=== PATIENT | male | born 1950 | race Caucasian/White ===

== ENCOUNTER 2017-10-19 01:10 | Emergency (ER) | payer OTHER ==
[~2017-10-19] VITALS: Ht 180.3 cm; Wt 158.8 kg
[2017-10-19] MEDS ORDERED: LISINOPRIL20 MG PO (01:25)
[2017-10-19] MEDS ORDERED: CARTIA XT120 M1 (01:25)
[2017-10-19] MEDS ORDERED: CARTIA XT300 M1 (01:25)
[2017-10-19] MEDS ORDERED: MAXZIDE-25 MG1 EACH (01:25)
[2017-10-19] MEDS ORDERED: TESTOSTERONE (01:26)
[2017-10-19] MEDS ORDERED: ARIMIDEX (01:26)
[2017-10-19] MEDS ORDERED: ALLOPURINOL 10100 M1 PO (01:26)
[2017-10-19] MEDS ORDERED: DHEA (01:27)
[2017-10-19] MEDS ORDERED: VITAMIN D (01:27)
[2017-10-19] MEDS ORDERED: PREGABALIN (01:27)
[2017-10-19 02:13] LABS: URINE BILIRUBIN NEGATIVE (Negative); URINE BLOOD 2+ (Negative); URINE CLARITY CLEAR; URINE COLOR YELLOW; URINE GLUCOSE-RANDOM NEGATIVE (Negative); URINE KETONES NEGATIVE (Negative); URINE LEUKOCYTES-REFLEX NEGATIVE (Negative); URINE NITRITE-REFLEX NEGATIVE (Negative); URINE PROTEIN 2+ (Negative); URINE UROBILINOGEN 0.2 E.U./dl (0.2-1.0)
[2017-10-19] MEDS ORDERED: FLOMAX0.4 MG PO (02:32)
[2017-10-19 02:52] VITALS: BP 133/66
[2017-10-19 02:54] LABS: CASTS None Seen /LPF (None Seen); SQUAMOUS 0-3 Few /LPF (0-3)
[2017-10-19 02:55] LABS: CRYSTALS None Seen /LPF (None Seen); URINE WBC-REFLEX 0-5 Rare /HPF (0-5)
== END 2017-10-19 02:54 | disposition home or self-care (01) ==
LOC: M.ERS 01:10
PROVIDERS: Emergency Medicine
DX: R33.9 Retention of urine, unspecified (principal); I10 Essential (primary) hypertension; K21.9 Gastro-esophageal reflux disease without esophagitis; Z90.49 Acquired absence of other specified parts of digestive tract

== ENCOUNTER 2017-10-23 01:42 | Emergency (ER) | payer OTHER ==
[~2017-10-23] VITALS: Ht 180.3 cm; Wt 157.4 kg
[~2017-10-23 01:42] MED LIST: ALLOPURINOL 10100 M1 PO; ARIMIDEX; CARTIA XT120 M1; CARTIA XT300 M1; DHEA; FLOMAX0.4 MG PO; LISINOPRIL20 MG PO; MAXZIDE-25 MG1 EACH; PREGABALIN; TESTOSTERONE; VITAMIN D
[2017-10-23 02:16] LABS: URINE BILIRUBIN NEGATIVE (Negative); URINE BLOOD 2+ (Negative); URINE CLARITY CLEAR; URINE COLOR YELLOW; URINE GLUCOSE-RANDOM NEGATIVE (Negative); URINE KETONES NEGATIVE (Negative); URINE LEUKOCYTES-REFLEX NEGATIVE (Negative); URINE NITRITE-REFLEX NEGATIVE (Negative); URINE PROTEIN TRACE (Negative); URINE UROBILINOGEN 0.2 E.U./dl (0.2-1.0)
[2017-10-23 02:31] LABS: BACTERIA-REFLEX >30 Many /HPF (None Seen); CRYSTALS None Seen /LPF (None Seen); FINE GRANULAR CASTS 0-3 Few /LPF (None Seen); HYALINE CASTS 0-3 Few /LPF (None Seen); MUCUS 4-6 Moderate strn/LPF (None Seen); SQUAMOUS 0-3 Few /LPF (0-3); URINE WBC-REFLEX >25 Many /HPF (0-5); WBC CLUMPS Moderate (None Seen)
[2017-10-23] MEDS ORDERED: PYRIDIUM200 MG PO (03:10)
[2017-10-23] MEDS ORDERED: CIPROFLOXACIN500 M1 PO (03:10)
[2017-10-23 03:30] VITALS: BP 160/72
== END 2017-10-23 03:30 | disposition home or self-care (01) ==
LOC: M.ERS 01:42
PROVIDERS: Emergency Medicine
DX: N39.0 Urinary tract infection, site not specified (principal); I10 Essential (primary) hypertension; K21.9 Gastro-esophageal reflux disease without esophagitis; Z90.89 Acquired absence of other organs; Z90.49 Acquired absence of other specified parts of digestive tract